=== PATIENT | male | born 1990 | race Caucasian/White ===

== ENCOUNTER 2021-04-19 15:53 | Emergency (ER) | payer OTHER ==
[2021-04-19 17:21] VITALS: BMI 35.9
[2021-04-19 17:35] LABS: BASO % 1.1 % (0-2.0); EOS % 2.6 % (0-4.5); HEMATOCRIT 46.9 % (35.4-49); HEMOGLOBIN 16.2 GM/dL (11.7-16.9); LYMPH % 35.9 % (8-40); MCH 29.6 pg (25.7-33.7); MCHC 34.6 g/dl (32.0-35.9); MEAN CELL VOLUME 85.6 fl (80-96); MEAN PLT VOLUME 8.1 fl (7.5-11.1); MONO % 8.7 % (3.8-10.2); NEUT % 51.7 % (42.8-82.8); PLATELET COUNT 170 10^3/uL (134-434); RBC 5.48 M/mm3 (4.00-5.60); RDW 13.7 % (11.9-15.9); WHITE BLOOD COUNT 4.4 K/mm3 (4.0-10.0)
[2021-04-19 17:37] LABS: CHLORIDE 109 mmol/L (98-107); SODIUM 143 mmol/L (136-145)
[2021-04-19 17:39] LABS: CALCIUM 8.2 mg/dL (8.5-10.1)
[2021-04-19 17:40] LABS: ALBUMIN 4.4 g/dl (3.4-5.0); ANION GAP 7 MMOL/L (8-16); BLOOD UREA NITROGEN 13.4 mg/dL (7-18); CO2 27 mmol/L (21-32); GLUCOSE,RANDOM 98 mg/dL (74-106); MAGNESIUM 2.2 mg/dL (1.8-2.4)
[2021-04-19 17:42] LABS: INR 1.01 (0.83-1.09); PROTHROMBIN TIME (PATIENT) 11.8 SEC (9.7-13.0)
[2021-04-19 17:43] LABS: CREATININE 0.8 mg/dL (0.55-1.3); SGOT/AST 37 U/L (15-37); SGPT/ALT 48 U/L (13-61)
[2021-04-19 17:45] LABS: ACTIVATED PTT 34.3 SECONDS (25.2-36.5); BILIRUBIN,TOTAL 0.4 mg/dL (0.2-1); TOT PROT 7.7 g/dl (6.4-8.2)
[2021-04-19 17:46] LABS: ALK PHOS 111 U/L (45-117)
[2021-04-19 21:17] VITALS: BP 121/84; PULSE 89; TEMP 98
== END 2021-04-19 21:44 | disposition home or self-care (01) ==
LOC: JER 15:53
PROC: 3E033GC Introduction of Other Therapeutic Substance into Peripheral Vein, Percutaneous Approach (ICD-10-PCS; principal; 2021-04-19)
DX: T46.5X1A Poisoning by other antihypertensive drugs, accidental (unintentional), initial encounter (principal); F10.10 Alcohol abuse, uncomplicated
CPT/HCPCS: 36415; 71045-TC-FY; 80053; 80307; 82550; 82553; 83735; 84443; 84484; 85025; 85610; 85730; 93005; 93010; 96374; 99285-25; C9803; U0003; U0005

== ENCOUNTER 2021-05-01 16:40 | Emergency (ER) | payer OTHER ==
[2021-05-01 17:08] VITALS: TEMP 98.1; BMI 36.0
[2021-05-01] MEDS ORDERED: LACTATED RINGERS SOLUTION 1000 ML INFUS.BAG IV ONE (19:03)
[2021-05-01 19:54] LABS: BASO % 1.3 % (0-2.0); EOS % 1.1 % (0-4.5); HEMOGLOBIN 15.3 GM/dL (11.7-16.9); LYMPH % 47.8 % (8-40); MCH 29.1 pg (25.7-33.7); MCHC 33.9 g/dl (32.0-35.9); MEAN CELL VOLUME 85.7 fl (80-96); MEAN PLT VOLUME 7.2 fl (7.5-11.1); MONO % 5.5 % (3.8-10.2); NEUT % 44.3 % (42.8-82.8); PLATELET COUNT 191 10^3/uL (134-434); RBC 5.25 M/mm3 (4.00-5.60); WHITE BLOOD COUNT 3.7 K/mm3 (4.0-10.0)
[2021-05-01 20:14] LABS: CHLORIDE 109 mmol/L (98-107); SODIUM 145 mmol/L (136-145)
[2021-05-01 20:17] LABS: ALBUMIN 4.3 g/dl (3.4-5.0); ANION GAP 8 MMOL/L (8-16); CALCIUM 8.4 mg/dL (8.5-10.1); CO2 28 mmol/L (21-32); GLUCOSE,RANDOM 86 mg/dL (74-106); MAGNESIUM 2.3 mg/dL (1.8-2.4)
[2021-05-01 20:21] LABS: BILIRUBIN,TOTAL 0.6 mg/dL (0.2-1); CREATININE 0.8 mg/dL (0.55-1.3); SGOT/AST 20 U/L (15-37); SGPT/ALT 34 U/L (13-61); TOT PROT 7.4 g/dl (6.4-8.2)
[2021-05-01 20:22] LABS: ALK PHOS 94 U/L (45-117)
[2021-05-01 22:31] VITALS: BP 129/75; PULSE 82
== END 2021-05-01 22:31 | disposition home or self-care (01) ==
LOC: JER 16:40
DX: R00.2 Palpitations (principal)
CPT/HCPCS: 36415; 71046-TC-FY; 80053; 82550; 82553; 83735; 84439; 84443; 84484; 85025; 93005; 93010; 99284-25